=== PATIENT | female | born 1995 | race African-American/Black ===

== ENCOUNTER 2021-05-09 19:17 | Emergency (ER) | payer OTHER ==
[2021-05-09 19:45] VITALS: BP 120/81; TEMP 98.3; BMI 23.0
[2021-05-09] MEDS ORDERED: ACETAMINOPHEN 325 MG TABLET (FP) PO ONE (22:01)
[2021-05-09] MEDS ORDERED: SODIUM CHLORIDE 0.9% 500 ML INFUS.BAG IV ONE (23:23)
[2021-05-10] MEDS ORDERED: ACETAMINOPHEN 325 MG TABLET (FP) ONE
[2021-05-10 00:09] VITALS: PULSE 91
== END 2021-05-10 00:38 | disposition home or self-care (01) ==
LOC: JER 19:17
DX: R07.0 Pain in throat (principal); R50.9 Fever, unspecified
CPT/HCPCS: 87070; 87651; 99284-25